=== PATIENT | female | born 1995 | race Caucasian/White ===

== ENCOUNTER 2020-12-29 04:43 | Emergency (ER) | payer OTHER ==
[~2020-12-29] VITALS: Ht 149.9 cm; Wt 91.2 kg
[2020-12-29 04:51] VITALS: BP 169/119; Ht 149.9 cm; Wt 91.2 kg
[2020-12-29] MEDS ORDERED: ULTRAM50 MG PO (05:58)
[2020-12-29] MEDS ORDERED: HYD50T PO (05:58)
== END 2020-12-29 06:17 | disposition home or self-care (01) ==
LOC: ED 04:43
DX: G44.209 Tension-type headache, unspecified, not intractable (principal); Z90.89 Acquired absence of other organs
CPT/HCPCS: J0780; J1885